=== PATIENT | male | born 1940 | race Caucasian/White ===

== ENCOUNTER → 2018-07-18 | Outpatient (CLI) | payer MEDICARE ==
[~2018-07-18] MED LIST: ALBUTEROL2.5 MG/31 INH; ASA5UEC PO; COLACE100 MG PO; CVS SUPER CRAN1 EACH PO; FINASTERIDE5 MG PO; FLOMAX0.4 MG PO; LIPITOR 20 MG T20 M1 PO; LORATIDINE 10 M10 M1 PO; METAMUCIL1 EAC1 PO; NIACIN 500 MG500 M1 PO; PERCOCET PO; SINGULAIR 10 MG10 M1 PO; TYLENOL EXTRA500 MG PO; VENTOLIN HFA 1818 GM INH; VITAMINC500 PO; XARELTO10 MG PO; ZYRTEC10 M5 PO
== END ==
LOC: M.MRI
DX: S83.231A Complex tear of medial meniscus, current injury, right knee, initial encounter (principal); M17.11 Unilateral primary osteoarthritis, right knee; M25.461 Effusion, right knee; M25.761 Osteophyte, right knee; R60.9 Edema, unspecified; X58.XXXA Exposure to other specified factors, initial encounter; Y93.89 Activity, other specified; Y92.89 Other specified places as the place of occurrence of the external cause; Y99.8 Other external cause status

== ENCOUNTER 2018-08-12 06:45 | Inpatient (IN) | payer MEDICARE ==
[2018-07-31 09:07] LABS: HEMATOCRIT 47.4 % (42.0-52.0); HEMOGLOBIN 15.7 gm/dL (14.0-18.0); MCH 27.7 pg (26.0-34.0); MCHC 33.1 g/dL (28.0-37.0); MCV 83.5 fL (80.0-100.0); MPV 8.9 fl. (7.2-11.1); RBC 5.68 mil/uL (4.50-6.00); RDW-CV 15.1 % (10.5-14.5); WBC 8.1 thou/uL (4.0-11.0)
[2018-07-31 09:27] LABS: ALBUMIN 3.4 g/dL (3.4-5.0); CALCIUM 8.6 mg/dL (8.5-10.1); CREATININE 1.2 mg/dL (0.6-1.3); POTASSIUM 3.9 mmol/L (3.5-5.1); TOTAL BILIRUBIN 0.7 mg/dL (<0.1-1.0); TOTAL PROTEIN 7.3 g/dL (6.4-8.2)
[2018-07-31 09:36] LABS: PROTIME 10.4 Seconds (9.20-11.50)
[2018-07-31 11:18] LABS: URINE BILIRUBIN NEGATIVE (Negative); URINE BLOOD NEGATIVE (Negative); URINE CLARITY CLEAR; URINE COLOR YELLOW; URINE GLUCOSE-RANDOM NEGATIVE (Negative); URINE KETONES NEGATIVE (Negative); URINE LEUKOCYTES-REFLEX NEGATIVE (Negative); URINE NITRITE-REFLEX NEGATIVE (Negative); URINE PROTEIN NEGATIVE (Negative); URINE UROBILINOGEN 0.2 E.U./dl (0.2-1.0)
--- NOTE | 2018-07-31 16:30 | EKG ---
[place] [address] ELECTROCARDIOGRAM REPORT Name: RAJANCECILIAVERONIKA Room: PRE IN [facility].#: [id number] Admission: Attend Phys: Amador Paulson Discharge: Date of : 44 Report #: [id number] THIS REPORT FOR: //name// [facility] Test Date: 2018-07-31 Test Time: 09:27:04 Pat Name: VERONIKA RAJAN Department: Room: Gender: M Street Worker: : 1940 Requested By: Braden Mulligan Order Number: [id number] Clifton MD: Sam Mayes Measurements Intervals Molt Rate: 71 P: 74 [place]: 212 QRS: 37 QRSD: 93 T: 41 QT: 400 QTc: 435 Interpretive Statements Sinus rhythm Borderline prolonged [place] interval Abnormal R-wave progression, early transition Consider inferior infarct No previous ECG available for comparison Electronically Signed On 07-31-2018 16:29:58 CDT by Sam Mayes [email or web address] <ELECTRONICALLY SIGNED> By: Sam Mayes MD, [facility] 07/31/18 1629 0927 09 Sam Mayes MD, FACC /EPI
[~2018-08-12] VITALS: Ht 180.3 cm; Wt 97.5 kg
[~2018-08-12 06:45] MED LIST changes: -COLACE100 MG PO; -METAMUCIL1 EAC1 PO; -PERCOCET PO; -XARELTO10 MG PO
[2018-08-12 07:13] VITALS: BP 137/81
--- NOTE | 2018-08-12 15:02 | NUR ---
PT SENT DOWN TO FLOOR AT 1315. PT IS ALERT AND ORIENTED, PT IS ON 2LITERS O2 BY NASAL CANNULA WITH CONTINUOUS CAPNO. 2+ PULSES IN ALL EXTREMITIES. LUNGS CLEAR. IV IN RT FOREARM WITH 1/2 NS AT 75ML/HR. PT HAD RT TKA COMPLETED WITH HEMOVAC CONNECTED. PT HAD 70 ML OUTPUT BEFORE TRANSFER TO FLOOR. PT HAS DEVIN HOSE ON, SCD FOOT PUMPS IN PLACE. POLAR PACK GIVEN. CPM ORDERED. PT DENIES ANY PAIN AT THIS TIME. PT DENIES ANY NAUSEA OR VOMITING. CALL LIGHT IN REACH. BED ALARM ON. WILL CONTINUE TO MONITOR.
[2018-08-12 16:34] VITALS: BP 114/67
--- NOTE | 2018-08-12 17:03 | NUR ---
RECIEVED O.T. ORDERS. WILL DEFER TO P.T. AT THIS TIME. PLEASE ORDER FURTHER O.T. SERVICES IF NEEDED.
--- NOTE | 2018-08-12 18:13 | NUR ---
PT REMAINED ALERT AND ORIENTED THIS SHIFT. PT IS ON 1 L O2 BY NASAL CANNULA. PT C/O PAIN ONCE DURING SHIFT, OXY IR GIVEN WITH PARTIAL PAIN RELIEF. PT HAS SCD BOOTS IN PLACE AND LEFT DEVIN HOSE ON. PT HAS DENIED ANY C/O NAUSEA AT THIS TIME. PT HAS NOT VOIDED AT THIS TIME, ONCE 6 HOURS HIT, WILL BLADDER SCAN PT AND INSERT AGUILAR ORDERED. CALL LIGHT IN REACH. BED ALARM ON. WILL CONTINUE TO MONITOR.
--- NOTE | 2018-08-12 18:37 | NUR ---
NURSING DOCUMENTATION BY URSULA Sarah RN REVIEWED.
--- NOTE | 2018-08-12 19:10 | NUR ---
BLADDER SCANNED, SHOWED 764 ML URINE RETAINED. AGUILAR CATHETER INSTERTED AND UA COLLECTED.
[2018-08-12 21:22] LABS: URINE BILIRUBIN NEGATIVE (Negative); URINE BLOOD NEGATIVE (Negative); URINE CLARITY CLEAR; URINE COLOR YELLOW; URINE GLUCOSE-RANDOM NEGATIVE (Negative); URINE KETONES NEGATIVE (Negative); URINE LEUKOCYTES NEGATIVE (Negative); URINE NITRITE NEGATIVE (Negative); URINE PROTEIN NEGATIVE (Negative); URINE UROBILINOGEN 0.2 E.U./dl (0.2-1.0)
[2018-08-13] VITALS (7 sets, daily range): BP systolic 94–112; BP diastolic 48–57
[2018-08-13 04:20] LABS: HEMATOCRIT 35.2 % (42.0-52.0); HEMOGLOBIN 11.8 gm/dL (14.0-18.0)
--- NOTE | 2018-08-13 06:15 | NUR ---
PATIENT HAS SLEPT WELL THROUGHOUT THE NIGHT WITHOUT ANY ISSUES. PAIN WELL CONTROLLED. MEDICATIONS GIVEN ORDERED AND CHARTED. VSS ON 1L 02 VIA NASAL CANNULA. AGUILAR TO DEPENDENT DRAINAGE WITH DARK YELLOW URINE OUTPUT. DRESSING TO RIGHT KNEE IS C/D/I, DEVIN HOSE, POLAR PACK AND SCD'S IN PLACE. IV IN RIGHT FOREARM-SL. PATIENT INSTRUCTED TO USE CALL LIGHT WHEN NEEDING ASSISTANCE. HOURLY ROUNDS MADE. FALL PRECAUTIONS IN PLACE. WILL CONTINUE WITH PLAN OF CARE AND NURSING TO MONITOR.
[2018-08-13] MEDS ORDERED: PERCOCET PO (15:20)
[2018-08-13] MEDS ORDERED: XARELTO10 MG PO (15:23)
[2018-08-13] MEDS ORDERED: COLACE100 MG PO (15:31)
--- NOTE | 2018-08-13 15:33 | NUR ---
PT.RESTING IN BED. AT BEDSIDE. HE STATED HE IS READY TO GO HOME TODAY. CAN HELP HIM AT HOME IF NEEDED. HE CHOSE [facility] . HE HAS USED THEM IN THE PAST. FAXED REFERRAL AND DISCHARGE ORDERS TO MARIANO/ALMA . PT.HAS A WALKER AT HOME. DISCUSSED POLAR PACK AND CPM. CALLED IN PRESCRIPTION WRITTEN FOR XARELTO TO PT.'S PHARMACY. COPAY IS $37. INFORMED PT. HE WILL NEED TO GO HOME WITH AGUILAR CATHETER FOR RETENTION. HE WILL FOLLOW UP WITH HIS REGULAR UROLOGIST NEXT WEEK. HE HAD A AGUILAR AFTER HIS HIP SURGERY BUT WOULD LIKE NURSING ADDED TO HOME HEALTH. NOTIFIED MARIANO AND FAXED ORDER TO HER. PT.IS NORMALLY INDEPENDENT AT HOME.
[2018-08-13] MEDS ORDERED: METAMUCIL1 EAC1 PO (15:39)
--- NOTE | 2018-08-13 16:57 | NUR ---
PT IS ALERT AND ORIENTED X 4. IV PATENT. PT INDICATES MINIMAL PAIN 1/10 AND DENIES NAUSEA. DRESSING ON RIGHT KNEE DRY AND INTACT. AGUILAR CATHETER IN PLACE. CPM IN USE IN AM. POLAR PACK IN PLACE. HEMOVAC DRAIN REMOVED. PT UP WITH THERAPY IN MORNING AND AFTERNOON. HOURLY ROUNDS MAINTAINED. WILL USE CALL LIGHT FOR ASSISTANCE. CALL LIGHT WITHIN REACH. IV REMOVED. DISCHARGE INSTRUCTIONS AND PRESCRIPTIONS GIVEN. PT LEFT UNIT PER W/C WITH PERSONAL BELONGINGS. PT LEFT FACILITY WITH PER PRIVATE CAR.
--- NOTE | 2018-08-13 18:46 | NUR ---
NURSING DOCUMENTATION BY SAMMY HATCH RN REVIEWED
--- NOTE | 2018-08-26 10:42 | OP ---
[facility] [address] [place] [address] OPERATIVE REPORT Name: SATINDERVERONIKA Brittany Room: [address]#: [id number] Admission: 08/12/18 Attend Phys: Amador Paulson Discharge: 08/13/18 Date of : 44 Report #: [id number] THIS REPORT FOR: //name// CC: Braden Dominguez DATE OF SERVICE: 08/12/2018 PREOPERATIVE DIAGNOSIS: Right knee arthritis. POSTOPERATIVE DIAGNOSIS: Right knee arthritis. PROCEDURE: Right total knee arthroplasty. SURGEON: Braden Mulligan II, DO. REAL ESTATE INVESTMENT ANALYST: MIKO Croft. ANESTHESIA: General endotracheal with adductor canal block. ESTIMATED BLOOD LOSS: 50 mL. ANTIBIOTIC: Ancef preoperatively. DRAINS: Medium Hemovac. COMPLICATIONS: None. CONDITION: Stable to recovery room. IMPLANTS: Listed in the operative record and progress note. BRIEF HISTORY: The patient was seen in preoperative area. Preoperative H and P was performed. Site was marked, questions were answered. Risks and benefits were discussed with the patient in detail about surgery, the patient wished to proceed assuming all risks. DESCRIPTION OF PROCEDURE: The patient was taken to operating suite, placed supine on the OR table and given appropriate anesthesia. The patient had a well-padded tourniquet applied to the upper thigh, which was inflated to 300 mmHg after gravity exsanguination. The operative knee was sterilely prepped and draped. Surgery began by midline incision. This was carried down through the subcutaneous tissues. A medial parapatellar arthrotomy was performed and carried down to bone. The patella was then everted and excess soft tissues removed from around the femur. Femoral cutting block was then applied, checked [facility] [address] [place] [address] OPERATIVE REPORT Name: VERONIKA RAJAN Room: [address]#: [id number] Admission: 08/12/18 Attend Phys: Amador Paulson Discharge: 08/13/18 Date of : 44 Report #: [id number] with drop klaudia for rotational alignment, pinned in appropriate position and appropriate cuts were made. A 4-in-1 cutting block was then applied, checked for rotational alignment, pinned in appropriate position and appropriate cuts were made. The tibia was then exposed. The excess meniscus was removed. Retractors were placed along the collateral ligaments. Tibial cutting block was applied, pinned in appropriate position, checked with drop klaudia for rotational alignment and slope and appropriate cut was made. Tibial bone was removed. The tibial baseplate was then applied, checked for rotational alignment with drop klaudia, pinned in appropriate position. Femur was then applied and box cut was reamed. This was trialed with appropriate spacer, which showed excellent fit and fill, excellent stability of knee throughout range of motion. The patella was then reamed in appropriate fashion and sized to appropriate size. Three peg holes were drilled and it was then trialed and showed excellent flexion, extension, excellent tracking of the patella within the groove. These trials were then removed. The tibia was punched in appropriate fashion. Bone ends were cleansed with Pulsavac irrigation and cement was mixed upon final implants. These were malleted in position and held the knee in extension and compressed to allow the cement to cure. After it cured, excess was removed utilizing a [place] and osteotome. It was then copiously irrigated and the final spacer was then malleted in position. The tourniquet was deflated. Hemostasis was maintained with electrocautery. Pain cocktail was injected. PRP gel was sprayed throughout the internal aspect of the knee. A medium Hemovac drain was applied. Capsule was closed with #2 FiberWire and #1 Vicryl in [id number] fashion. Skin was closed with #2-0 Vicryl and running #3-0 Monocryl. Dermabond and sterile dressing applied. Seth wrap and PolarCare applied. The patient transported to Recovery Room in stable condition. Counts were correct throughout the procedure. <ELECTRONICALLY SIGNED> By: Braden Mulligan II, DO 08/26/18 1042 [id number] [id number] Mulligan II, DO /nt
== END 2018-08-13 16:45 | disposition home health service (06) | DRG 470 ==
LOC: M.PRE → M.TBA 06:45 → M.ORTHSURG 06:45 → M.PRE 08:48 → M.ORTHSURG 11:45 → M.PRE 12:29 → M.ORTHSURG 08-13 16:45
PROVIDERS: Orthopaedic Surgery; ADMIT Internal Medicine
PROC: 0SRC0J9 Replacement of Right Knee Joint with Synthetic Substitute, Cemented, Open Approach (ICD-10-PCS; principal; 2018-08-12)
DX: M17.11 Unilateral primary osteoarthritis, right knee (principal); Z96.641 Presence of right artificial hip joint; J45.909 Unspecified asthma, uncomplicated; E78.00 Pure hypercholesterolemia, unspecified; E78.5 Hyperlipidemia, unspecified; N40.1 Benign prostatic hyperplasia with lower urinary tract symptoms; R33.8 Other retention of urine; K08.409 Partial loss of teeth, unspecified cause, unspecified class; Z98.42 Cataract extraction status, left eye; Z88.8 Allergy status to other drugs, medicaments and biological substances; Z98.41 Cataract extraction status, right eye; Z90.49 Acquired absence of other specified parts of digestive tract; Z85.038 Personal history of other malignant neoplasm of large intestine; Z82.49 Family history of ischemic heart disease and other diseases of the circulatory system; Z87.891 Personal history of nicotine dependence